=== PATIENT | male | born 1945 | race Caucasian/White ===

== ENCOUNTER 2018-12-23 13:40 | Emergency (ER) | payer MEDICARE ==
[~2018-12-23] VITALS: Ht 188 cm; Wt 100.0 kg
[2018-12-23] MEDS ORDERED: DILT180C54 PO (13:58)
[2018-12-23] MEDS ORDERED: APIX5TAB PO (13:58)
[2018-12-23] MEDS ORDERED: LOSA50TA20 PO (13:58)
[2018-12-23 15:53] LABS: BASOPHILS % 1.1 % (0.0-2.0); EOSINOPHILS % 1.6 % (0.0-5.0); HEMATOCRIT. 47.4 % (42.0-52.0); HEMOGLOBIN. 16.4 g/dL (14.0-18.0); LYMPHOCYTES % 36.9 % (20.0-50.0); MEAN CORPUSCULAR HEMOGLOBIN 31.9 pg (28.0-32.0); MEAN CORPUSCULAR VOLUME 92.4 fL (80.0-94.0); MEAN PLATELET VOLUME 9.5 fl (7.4-10.4); MONOCYTES % 7.9 % (2.0-8.0); NEUTROPHILS % 52.5 % (40.0-76.0); PLATELET 174 x1000/uL (130-400); RED BLOOD CELL COUNT 5.13 mill/uL (4.7-6.1); RED CELL DISTRIBUTION WIDTH 14.1 % (11.6-14.6)
[2018-12-23 15:57] VITALS: BP 132/98
[2018-12-23 15:57] LABS: CHLORIDE 106 mEq/L (98-107)
[2018-12-23 15:58] LABS: INR 1.1; PROTHROMBIN TIME 11.2 sec (9.6-11.0)
== END 2018-12-23 16:54 | disposition home or self-care (01) ==
LOC: ER 13:40
DX: M25.562 Pain in left knee (principal); I10 Essential (primary) hypertension
CPT/HCPCS: 36415; 93971; 99284